=== PATIENT | male | born 1965 | race Caucasian/White ===

== ENCOUNTER 2016-12-24 21:09 | Emergency (ER) | payer BC ==
[~2016-12-24] VITALS: Ht 175.3 cm; Wt 77.0 kg
[2016-12-24] MEDS ORDERED: ESCI10TA PO (21:10)
[2016-12-24] MEDS ORDERED: LIDOCAINE HCL 2%/EPI 1:200,000/PF 10 ML VIAL INJ ONE (21:45)
[2016-12-24] MEDS ORDERED: PERTUSS(ACELL),DIPH,TET VAC/PF 0.5 ML VIAL IM ONE (21:45)
[2016-12-24 22:28] VITALS: BP 129/70
== END 2016-12-24 22:30 | disposition home or self-care (01) ==
LOC: EMS 21:11
DX: S61.412A Laceration without foreign body of left hand, initial encounter (principal); F41.9 Anxiety disorder, unspecified; W26.0XXA Contact with knife, initial encounter; Y93.89 Activity, other specified; Y92.89 Other specified places as the place of occurrence of the external cause; Y99.8 Other external cause status
CPT/HCPCS: 12001; 90471; 90715; 99283; J3490